=== PATIENT | male | born 1950 | race Caucasian/White ===

== ENCOUNTER 2022-03-24 16:35 | Observation (INO) ==
[2022-03-24] MEDS ORDERED: STAT IV Infusion **Titration per Protocol STA (16:58)
[2022-03-24] MEDS ORDERED: dilTIAZem HCl 5 MG/ML 5 ML VIAL IV STA (16:58)
[2022-03-24] MEDS ORDERED: dilTIAZem HCL 125 MG in DEXTROSE 5% 100 ML IV SCH (17:00)
[2022-03-24 17:47] LABS: Basophils # (auto) 0.02 K/uL (0-0.2); Basophils % (auto) 0.2 %; Eosinophils # (auto) 0.13 K/uL (0-0.5); Eosinophils % (auto) 1.4 %; Hematocrit (blood only) 49.5 % (42-52); Hemoglobin 17.5 g/dL (14.0-18.0); Immature Granulocytes # (auto) 0.03 K/uL (0.00-0.02); Immature Granulocytes % (auto) 0.3 %; Lymphocytes # (auto) 1.66 K/uL (1.2-3.4); Lymphocytes % (auto) 17.7 %; Mean Corpuscular Hemoglobin 32.1 pg (25-34); Mean Corpuscular Hgb Conc 35.4 g/dL (32-36); Mean Corpuscular Volume 90.7 fL (80-100); Mean Platelet Volume 9.3 fL (7.4-10.4); Monocytes # (auto) 0.94 K/uL (0.11-0.59); Neutrophils # (auto) 6.62 K/uL (1.4-6.5); Neutrophils % (auto) 70.4 %; Platelet Count 226 K/uL (130-400); RDW Coefficient of Variation 13.2 % (11.5-14.5); RDW Standard Deviation 43.3 fL (36.4-46.3); Red Blood Count 5.46 M/uL (4.7-6.1)
[2022-03-24 17:48] LABS: Troponin I High Sensitivity 8.3 pg/ml (0-20)
[2022-03-24 18:01] LABS: Albumin Globulin Ratio 1.5 (0.9-2); BUN Creatinine Ratio 31.8 (10-20); Bilirubin,Total 0.8 mg/dl (0.2-1.0); Creatinine Clr Calc Pharmacy 104.5 ml/min; Est GFR (African American) 101.6 ml/min; Est GFR (Non-African American) 87.6 ml/min; Globulin 2.6 gm/dl (2.5-4.0); Potassium 3.9 mmol/L (3.5-5.1); Total Protein 6.6 gm/dl (6.0-8.3)
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
[2022-03-24] MEDS ORDERED: METOPROLOL TARTRATE 1 MG/ML VIAL IV STA (19:07)
[2022-03-24] MEDS ORDERED: MAGNESIUM SULFATE / D5W 1 GM/100 ML BAG IV ONE (19:10)
--- NOTE | 2022-03-24 19:39 | History & Physical Report ---
Date of Service March 24, 2022 Assessment & Plan (1) Atrial flutter with rapid ventricular response: Plan: New onset afib/aflutter with rapid response - Transition off Diltiazem drip - Magnesium 1GM IV now - Metoprolol 5mg IV now- repeat if HR not respond- then PO Metoprolol 25mg PO q6-8 - CHADSVASC2- 1 currently with unknown EF, HGB A1C in am eval for DM - HASBLED - 0 - HScTNI negative - TSH normal - - Will start on Heparin infusion overnight - patient wants to think about agent options- if rhythm control strategy pursued will need anticoagulated - Cardiology consult - for rate vs. rhythm control discussion and follow up (2) HTN (hypertension): Plan: Hold Amlodopine - adjust therapy based on hemodynamic response with rate controlling agent - Metoprolol initiated (3) HLD (hyperlipidemia): Plan: Continue Pravastatin Lipid panel in am (4) Obesity (BMI 35.0-39.9 without comorbidity): Plan: Wieght loss would be beneficial for overall CV morbidity risk - Lipid panel and HGBA1c in morning for full risk profile (5) Elevated serum glucose: Plan: Random elevation not fasting without the diagnosis of DM - As above- evaluate HGBA1c History of Present Illness Primary Care Provider: NO PCP 71 YOM with medical history: Obesity, HTN, HLD. Patient comes to the [facility] today for evaluation for increased HR. He was noted to be in Afib/Aflutter. He was initiated on Diltiazem drip in the EMD. He had routine labs performed to include HScTNI, CK,Lyme. Medicine team was consulted for admission. Patient states that on Tuesday he was working on [employer] and had gotten electrocuted 2 times, they then went to [facility] on Tuesday and he checked his BP on one of the machines there and it said his pulse was 120-140 he initially thought this was wrong. He went home and checked his pulse on Tuesday with portable pulse ox that his uses for her pulmonary disorder- this again read 120/130. He has not had any symptoms of chest pain, or dizziness, but did endorse that he was more fatigued feeling yesterday. 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 He drinks 1-2 drinks per week and has never smoked. He denies any other medical history other than what is above. He has never had sleep study, but endorses that he snores quite loud at night. Family history of father with Afib. Patient also endorses that he does check his pulsox with his whenever she does it so onset of the fast HR is likely sometime within the past week. We have no records available for review. COVID test on admission is: NEGATIVE Allergies Allergy/AdvReac Type Severity Reaction Status Date / Time No Known Allergies Allergy Verified 03/24/22 17:05 Home Medications Medication Instructions Recorded Confirmed Type pravastatin 20 mg tablet 20 mg PO HS 03/24/22 03/24/22 History apixaban 5 mg tablet 5 mg PO BID #60 tab 03/25/22 Rx metoprolol succinate 25 mg 25 mg PO HS #30 tab 03/25/22 Rx tablet,extended release 24 hr Past Med/Surg History Medical History HLD (hyperlipidemia) HTN (hypertension) Family History Other Coronary heart disease Dyslipidemia Heart disease Hypertension Social History Smoking Status: Never smoker Second Hand Exposure: No; Hx Alcohol Use: Yes Alcohol type: wine Hx Substance Use: No Preferred Language: French Communication Ability: Effective Systems Mgr Required: No Beliefs That Will Affect Care: None Current Living Situation: Spouse Current Living Situation Comment: at home Feels Safe at Home: Yes Assistive Devices: None Review of Systems Review of Systems: REVIEW OF SYSTEMS: Constitutional: No fever, sweats or chills Eyes: No diplopia, no worsening or blurred vision ENT: (+) wears hearing aids, no trouble swallowing Respiratory: No cough, sputum, dyspnea at rest or on exertion Cardiovascular: No chest pain, tightness or palpitations Abdomen: No pain, nausea, vomiting, diarrhea or constipation Musculoskeletal: No joint pain, calf pain, swelling Neurologic: No weakness, numbness/tingling, or balance problems Psychiatric: No anxiety or depression Skin: No rash or itch Physical Exam Physical Exam: PHYSICAL EXAM: General: awake, alert, no apparent distress Head: Normocephalic, atraumatic ENT: PERRL, EOMI, no pharyngeal exudate, mucous membranes moist Neuro: AAO x 3, speech clear and appropriate, strength intact bilaterally 5/5, sensation intact and equal all extremities and dermatomes, no pronator drift Chest: equal rise and fall of the chest, no accessory muscle use, no heaves or thrills, Clear to auscultation, on room air, Cardiac: Regular rate and rhythm, telemetry reviewed, skin warm dry, cap refill <3 seconds, peripheral pulses +2 no JVD, no murmur, no JVD, no edema GI: NABS x 4 quadrants, soft, nontender to palpation, no rebound, guarding or tenderness : Spontaneously voiding, no pain, no CVA tenderness, Extremities: Normal inspection, no peripheral edema or erythema, calfs nontender to palpation Psych: Normal mood and affect Skin: no rash or erythema Results & Data Results & Data ([facility]) Vital Signs (Past 12 Hours) Vital Signs Temp Pulse Resp BP Pulse Ox 03/24/22 17:17 123/94 03/24/22 17:00 134 H 20 118/98 96 03/24/22 16:37 36.6 C 135 H 18 120/92 95 Laboratory Results Abnormal lab results 03/24/22 03/24/22 Range/Units 17:10 17:32 Neut # (Auto) 6.62 H (1.4-6.5) K/uL [place] # (Auto) 0.94 H (0.11-0.59) K/uL Immature Gran # (Auto) 0.03 H (0.00-0.02) K/uL Chloride 109 H (98-107) mmol/L Carbon Dioxide 19 L (21-32) mmol/L Anion Gap 12 H (3-11) BUN 28 H (6-23) mg/dl BUN/Creatinine Ratio 31.8 H (10-20) Glucose 101 H (70-99(Fasting)) mg/dl Diagnostic Findings CXR on admit evaluate heart size and pulmonary farrar Medications Administered Home Medications amlodipine 5 mg tablet 5 mg PO HS 03/24/22 [History Confirmed 03/24/22] pravastatin 20 mg tablet 20 mg PO HS 03/24/22 [History Confirmed 03/24/22] Active Medications Heparin Sodium/Dextrose (Heparin Iv Adult Wt-Based Low-Dose *No* Bolus Protocol) 1 ea IV Q1H [facility]; Protocol Stop: 04/23/22 19:11 Diltiazem HCl 125 mg/ Dextrose 125 mls @ 5 mls/hr IV .Q24H [facility]; Protocol Stop: 04/23/22 16:59 Last Admin: 03/24/22 17:24 Dose: 5 mg/hr, 5 mls/hr Documented by: Magnesium Sulfate/Dextrose (Magnesium Sulfate / D5w) 1 gm in 100 mls @ 50 mls/hr IV ONE ONE Stop: 03/24/22 21:09 Heparin Sodium/Dextrose (Heparin Sodium/Dextrose) 25,000 units in 500 mls @ 0.02 mls/hr IV .Q24H [facility]; Protocol Stop: 04/23/22 19:29 Diltiazem HCl 125 mg/ Dextrose 125 mls @ 5 mls/hr IV .Q24H [facility]; Protocol Stop: 04/23/22 16:59 Last Admin: 03/24/22 17:24 Dose: 5 mg/hr, 5 mls/hr Documented by: [id number] Cosigned by: [id number] Discontinued Medications Diltiazem HCl (Diltiazem Hcl 5 Mg/Ml 5 Ml Vial) 10 mg IV NOW STA Stop: 03/24/22 16:59 Last Admin: 03/24/22 17:17 Dose: 10 mg Documented by: [id number] Cosigned by: [id number] ECG Additional Comments: Sinus tachycardia with short MI Right bundle branch block Left anterior f ascicular block Bifascicular block T wave abnormality, consider inferolateral ischemia Abnormal ECG No previous ECGs available Code Status & VTE Plan Code Status CODE: FULL VTE: SCDs, Heparin drip VTE Prophylaxis Plan VTE Prophylaxis will be ordered: Yes Critical Care Time 40 minutes critical care time spent direct care and discussion with patient - transitioning IV drip medication - discussing therapeutic options and risks - reviewing records and interpreting EKG and Radiological film Supervising Physician Co-Signing Physician Notes I personally examined the patient and verified all zavala points of history and exam, discussed case, and agree with decision making with Trini CEDILLO feeling OK now vitals noted nad heent nc at mmm breathing unlabored no accessory muscles good effort skin no rashes no pallor or icterus tachycardia - afib/flutter - RVR. rate control, anticoagulate. otherwise as above PG Care Time/CCT Total # of Minutes Spent Total Time Spent with Patient: Total time spent is greater than 50% in coordination of care (as documented) at patient's floor/unit and/or counseling patient: Coding Level of Care Code INT OBSERVATION CARE 72M LVL 3 Diagnoses HTN (hypertension) I10 HLD (hyperlipidemia) E78.5 Obesity (BMI 35.0-39.9 without comorbidity) E66.9 Atrial flutter with rapid ventricular response I48.92 Elevated serum glucose R73.9
--- NOTE | 2022-03-24 19:40 | Communication Note ---
Date of Service: March 24, 2022 I personally examined the patient and verified all zavala points of history and exam, discussed case, and agree with decision making with Trini CEDILLO HR up. checked at store ~140, checked again at home - persistent. came to ER vitals noted nad heent nc at mmm cardio tachy ~100 at the time i see him no r/m/g lungs clear no focal neuro deficits afib/flutter - RVR - rate control improving. continue w beta angelina. discussed fpc anticoagulation otherwise as above
[2022-03-24 19:41] LABS: Lyme Ab IgG w/WB Rflx Negative (Negative); Lyme Ab IgM w/WB Rflx Negative (Negative)
[2022-03-24] MEDS ORDERED: ONDANSETRON INJ 2 MG/ML 2 ML VIAL IV PRN (19:56)
[2022-03-24] MEDS ORDERED: METOPROLOL TARTRATE 25 MG TAB PO STA (19:57)
[2022-03-24] MEDS ORDERED: METOPROLOL TARTRATE 1 MG/ML VIAL IV PRN (19:58)
[2022-03-24] MEDS ORDERED: HEPARIN SODIUM/DEXTROSE 25,000 UNITS/500 ML BAG IV SCH (20:15)
--- NOTE | 2022-03-24 20:16 | XRay Report ---
XR chest 1V portable HISTORY: Palpitations. COMPARISON: None. FINDINGS: There are low lung volumes. This likely accounts for the mild prominence of the cardiac chan houette. No focal lung consolidations to suggest pneumonia. No evidence for pulmonary edema. No pleur al effusions. No pneumothorax. IMPRESSION: No acute process. ACT 112: Negative or not required by law. Electronically signed by: Gary Trammell M.D. 03/24/2022 8:15 PM
[2022-03-24] MEDS: Heparin IV Adult Wt-Based Low-Dose *NO* Bolus Protocol IV SCH (21:00)
[2022-03-24] MEDS ORDERED: PRAVASTATIN SOD 20 MG TAB PO SCH (21:00)
[2022-03-25] MEDS: METOPROLOL TARTRATE 25 MG TAB PO SCH ×3 (04:33→13:22)
[2022-03-25] MEDS: Heparin IV Adult Wt-Based Low-Dose *NO* Bolus Protocol IV SCH (07:10)
[2022-03-25 07:55] LABS: BUN Creatinine Ratio 27.1 (10-20); Chol HDL Ratio 3.4 (0-5); Est GFR (Non-African American) 88.9 ml/min; Magnesium 2.1 mg/dl (1.7-2.4); Potassium 3.8 mmol/L (3.5-5.1)
[2022-03-25 07:59] LABS: Basophils # (auto) 0.04 K/uL (0-0.2); Basophils % (auto) 0.6 %; Eosinophils # (auto) 0.19 K/uL (0-0.5); Eosinophils % (auto) 2.8 %; Hematocrit (blood only) 47.2 % (42-52); Hemoglobin 16.6 g/dL (14.0-18.0); Immature Granulocytes # (auto) 0.03 K/uL (0.00-0.02); Immature Granulocytes % (auto) 0.4 %; Lymphocytes # (auto) 1.89 K/uL (1.2-3.4); Lymphocytes % (auto) 27.5 %; Mean Corpuscular Hemoglobin 32.8 pg (25-34); Mean Corpuscular Hgb Conc 35.2 g/dL (32-36); Mean Corpuscular Volume 93.3 fL (80-100); Mean Platelet Volume 9.5 fL (7.4-10.4); Monocytes # (auto) 0.79 K/uL (0.11-0.59); Monocytes % (auto) 11.5 %; Neutrophils # (auto) 3.93 K/uL (1.4-6.5); Neutrophils % (auto) 57.2 %; Platelet Count 230 K/uL (130-400); RDW Coefficient of Variation 13.1 % (11.5-14.5); RDW Standard Deviation 44.9 fL (36.4-46.3); Red Blood Count 5.06 M/uL (4.7-6.1); White Blood Count 6.87 K/uL (4.8-10.8)
--- NOTE | 2022-03-25 09:24 | Cardiology Consultation ---
Date of Consultation March 25, 2022 History of Present Illness Reason for Consultation: Atrial flutter Requesting Physician: NGUYEN Ruelas History of Present Illness Mr. Hall is a 71-year-old male with a past medical history significant for hypertension and dyslipidemia who was admitted yesterday with new onset atrial flutter. Family history: Social history: Allergies Allergy/AdvReac Type Severity Reaction Status Date / Time No Known Allergies Allergy Verified 03/24/22 17:05 Home Medications Medication Instructions Recorded Confirmed Type amlodipine 5 mg tablet 5 mg PO HS 03/24/22 03/24/22 History pravastatin 20 mg tablet 20 mg PO HS 03/24/22 03/24/22 History Patient History Medical History (Updated 03/24/22 @ 19:44 by NGUYEN Baeza) HLD (hyperlipidemia) HTN (hypertension) Family History (Updated 03/24/22 @ 19:31 by NGUYEN Baeza) Other Coronary heart disease Dyslipidemia Heart disease Hypertension Social History Smoking Status: Never smoker Second Hand Exposure: No; Do You Dip or Chew Tobacco: No; Hx Alcohol Use: Yes Alcohol type: wine Hx Substance Use: No Preferred Language: Arabic Communication Ability: Effective [employer] Service Technician Required: No Beliefs That Will Affect Care: None Current Living Situation: Spouse Current Living Situation Comment: at home Other Information That Helps Us Care for You: No Feels Safe at Home: Yes Safety Concerns: Feels Safe At This Time Assistive Devices: Glasses and Hearing Aid - Bilateral Results & Data ([facility]) Vital Signs (Past 12 Hours) Vital Signs Temp Pulse Pulse Resp BP Pulse Ox 03/25/22 07:49 98.6 F 58 L 18 118/75 94 03/25/22 07:10 55 L 03/25/22 04:10 97.7 F 53 L 18 121/67 93 03/24/22 23:27 98.4 F 55 L 18 129/83 96 03/24/22 23:17 64 03/24/22 22:48 60 03/24/22 21:55 98.2 F 54 L 18 116/79 95 Laboratory Results Laboratory Results WBC 6.87 K/uL (4.8-10.8) 03/25/22 07:20 RBC 5.06 M/uL (4.7-6.1) 03/25/22 07:20 Hgb 16.6 g/dL (14.0-18.0) 03/25/22 07:20 Hct 47.2 % (42-52) 03/25/22 07:20 MCV 93.3 fL (80-100) 03/25/22 07:20 MCH 32.8 pg (25-34) 03/25/22 07:20 MCHC 35.2 g/dL (32-36) 03/25/22 07:20 RDW Std Deviation 44.9 fL (36.4-46.3) 03/25/22 07:20 RDW Coeff of Audrey 13.1 % (11.5-14.5) 03/25/22 07:20 Plt Count 230 K/uL (130-400) 03/25/22 07:20 MPV 9.5 fL (7.4-10.4) 03/25/22 07:20 Immature Gran % (Auto) 0.4 % 03/25/22 07:20 Neut % (Auto) 57.2 % 03/25/22 07:20 Lymph % (Auto) 27.5 % 03/25/22 07:20 [place] % (Auto) 11.5 % 03/25/22 07:20 Eos % (Auto) 2.8 % 03/25/22 07:20 Baso % (Auto) 0.6 % 03/25/22 07:20 Neut # (Auto) 3.93 K/uL (1.4-6.5) 03/25/22 07:20 Lymph # (Auto) 1.89 K/uL (1.2-3.4) 03/25/22 07:20 [place] # (Auto) 0.79 K/uL (0.11-0.59) H 03/25/22 07:20 Eos # (Auto) 0.19 K/uL (0-0.5) 03/25/22 07:20 Baso # (Auto) 0.04 K/uL (0-0.2) 03/25/22 07:20 Immature Gran # (Auto) 0.03 K/uL (0.00-0.02) H 03/25/22 07:20 PT 11.0 Seconds (9.0-12.0) 03/24/22 19:11 INR 1.0 (0.9-1.1) 03/24/22 19:11 Sodium 139 mmol/L (136-145) 03/25/22 07:20 Potassium 3.8 mmol/L (3.5-5.1) 03/25/22 07:20 Chloride 106 mmol/L (98-107) 03/25/22 07:20 Carbon Dioxide 27 mmol/L (21-32) 03/25/22 07:20 Anion Gap 6 (3-11) 03/25/22 07:20 BUN 23 mg/dl (6-23) 03/25/22 07:20 Creatinine 0.85 mg/dl (0.6-1.4) 03/25/22 07:20 Est Cr Clr Drug Dosing 105.0 ml/min 03/25/22 07:20 Est GFR ( Amer) 103.0 ml/min 03/25/22 07:20 Est GFR (Non-Af Amer) 88.9 ml/min 03/25/22 07:20 BUN/Creatinine Ratio 27.1 (10-20) H 03/25/22 07:20 Glucose 100 mg/dl (70-99(Fasting)) H 03/25/22 07:20 Calcium 9.0 mg/dl (8.5-10.1) 03/25/22 07:20 Magnesium 2.1 mg/dl (1.7-2.4) 03/25/22 07:20 Total Bilirubin 0.8 mg/dl (0.2-1.0) 03/24/22 17:10 AST 16 U/L (13-39) 03/24/22 17:10 ALT 12 U/L (7-52) 03/24/22 17:10 Alkaline Phosphatase 61 U/L (34-104) 03/24/22 17:10 Total Creatine Kinase 114 U/L (30-223) 03/24/22 17:10 Troponin I High Sens 8.3 pg/ml (0-20) 03/24/22 17:10 Total Protein 6.6 gm/dl (6.0-8.3) 03/24/22 17:10 Albumin 4.0 gm/dl (3.4-5.0) 03/24/22 17:10 Globulin 2.6 gm/dl (2.5-4.0) 03/24/22 17:10 Albumin/Globulin Ratio 1.5 (0.9-2) 03/24/22 17:10 Triglycerides 132 mg/dl (0-150) 03/25/22 07:20 Cholesterol 161 mg/dl (0-200) 03/25/22 07:20 LDL Cholesterol, Calc 87 mg/dl 03/25/22 07:20 VLDL Cholesterol, Calc 26 mg/dl (0-30) 03/25/22 07:20 HDL Cholesterol 48 mg/dl 03/25/22 07:20 Cholesterol/HDL Ratio 3.4 (0-5) 03/25/22 07:20 TSH 2.271 uIu/ml (0.300-4.500) 03/24/22 17:10 Lyme Disease IgG Ab Negative (Negative) 03/24/22 17:10 Lyme Disease IgM Ab Negative (Negative) 03/24/22 17:10 SARS-CoV-2, RNA, NAAT NEGATIVE (NEGATIVE) 03/24/22 17:23 Diagnostic Findings Chest X-Ray 03/24/22: No acute process. Telemetry monitoring: Atrial flutter converted to sinus rhythm at 20:30 on 03/24/22. He has since been in sinus in the 50s-60s. ECG 03/24/22 16:48: Atrial flutter at 135 bpm. Left anterior fascicular block. ECG 03/24/22 20:43: Sinus bradycardia with first degree AV block at 53 bpm. Left anterior fascicular block. Echo preliminary reading: Normal LV systolic function. Mild LVH. Mild left atrial enlargement. Mild MR. PG Care Time/CCT Total # of Minutes Spent Total Time Spent with Patient: Total time spent is greater than 50% in coordination of care (as documented) at patient's floor/unit and/or counseling patient: Coding
--- NOTE | 2022-03-25 10:26 | XCELERA ---
[id number]
--- NOTE | 2022-03-25 10:31 | Cardiology Consultation ---
Date of Consultation March 25, 2022 Assessment & Plan (1) Atrial flutter with rapid ventricular response: (2) HTN (hypertension): (3) HLD (hyperlipidemia): (4) Obesity (BMI 35.0-39.9 without comorbidity): 71-year-old man with vascular risk factors (age/hypertension/dyslipidemia) but no known coronary disease who was admitted with atrial flutter with rapid ventricular response after receiving electrical shock at home. Although this may be a one-time event, he does have predisposing risk factors for recurrent atrial fibrillation of family history, hypertension, age, mild LVH, and mild MR with mildly dilated left atrium. Since he runs bradycardic at home, would use only low-dose beta-angelina. His blood pressure has been low normal here, therefore discontinue amlodipine and initiate metoprolol succinate 25 mg daily. He will monitor blood pressure, could add amlodipine back or initiate low-dose diuretic if he becomes hypertensive. Would use short-term anticoagulation with apixaban 5 mg twice daily, discussed with the patient self monitoring (checking pulse or using watch with [employer] mariana), will reevaluate need for anticoagulation at the time of an office visit in 3 to 4 weeks and decide on chronic anticoagulation versus surveillance with anticoagulation as needed. Avoid aspirin and minimize nonsteroidal use while on apixaban. Did encourage regular exercise to improve exercise tolerance as well as facilitate weight loss. Continue statin given his vascular risk factors. Agree with evaluation for diabetes. Cardiology follow-up in 3 to 4 weeks in the office. History of Present Illness Reason for Consultation: afib Requesting Physician: Sukhjinder Victor MD Attending Physician: Sukhjinder Victor MD History of Present Illness 71-year-old man with history of hypertension dyslipidemia, no known cardiac history, who was admitted 03/24/2022 after noticing his heart rate was elevated, ECG showed atrial flutter with rapid ventricular response (135 bpm). 4 days ago he was repairing a leaking water pipe at home when he received 2 separate electric shocks, he did not feel badly afterwards but several days later when checking blood pressure found that his pulse rate was 120-140 bpm which was confirmed on a pulse ox. He denied chest pain at any time and noted no subjective palpitations, dyspnea, lightheadedness and had no presyncope or syncope. Family history of father with atrial fibrillation. He drinks 1-2 alcoholic beverages weekly and is a non-smoker. Modestly physically active but no formal exercise. Notes that his baseline heart rate is borderline bradycardic and has been so since he was young adult, usually in the 50 bpm ran ge. Last evening he spontaneously converted back to sinus rhythm and has been in the 60 bpm range. He was comfortable this morning and had no somatic complaints whatsoever. Allergies Allergy/AdvReac Type Severity Reaction Status Date / Time No Known Allergies Allergy Verified 03/24/22 17:05 Home Medications Medication Instructions Recorded Confirmed Type amlodipine 5 mg tablet 5 mg PO HS 03/24/22 03/24/22 History pravastatin 20 mg tablet 20 mg PO HS 03/24/22 03/24/22 History Patient History Medical History HLD (hyperlipidemia) HTN (hypertension) Family History Other Coronary heart disease Dyslipidemia Heart disease Hypertension Social History Smoking Status: Never smoker Second Hand Exposure: No; Do You Dip or Chew Tobacco: No; Hx Alcohol Use: Yes Alcohol type: wine Hx Substance Use: No Preferred Language: Citizen Of [place] Communication Ability: Effective Telephone Lines Repairer Required: No Beliefs That Will Affect Care: None Current Living Situation: Spouse Current Living Situation Comment: at home Other Information That Helps Us Care for You: No Feels Safe at Home: Yes Safety Concerns: Feels Safe At This Time Assistive Devices: Glasses and Hearing Aid - Bilateral Physical Exam Physical Exam: Mildly obese adult white male in no distress. BP normotensive. Pulse 58 bpm and regular without ectopy. Skin: no ecchymoses or generalized lesions. HEENT: unremarkable. Neck: no JVD or carotid bruits. Lungs: clear. Cardiac: regular rhythm, normal S1 and S2, no murmur or gallop. Abdomen: benign. Extremities: no edema, pulses intact. Neurologic: normal affect, nonfocal. Results & Data ([facility]) Vital Signs (Past 12 Hours) Vital Signs Temp Pulse Pulse Resp BP Pulse Ox 03/25/22 07:49 98.6 F 58 L 18 118/75 94 03/25/22 07:10 55 L 03/25/22 04:10 97.7 F 53 L 18 121/67 93 03/24/22 23:27 98.4 F 55 L 18 129/83 96 03/24/22 23:17 64 03/24/22 22:48 60 Laboratory Results Normal troponin (8.3). Normal CBC. Normal electrolytes, BUN 23, creatinine 0.85. Magnesium 2.0. Cholesterol 161, HDL 48, LDL 87, triglycerides 132. Lyme titer negative. COVID testing negative. Diagnostic Findings Initial ECG showed atrial flutter with with ventricular rate 135 bpm, left anterior fascicular block, no prior study for comparison. ECG today showed sinus bradycardia 55 bpm with left anterior fascicular block, otherwise unremarkable. Echocardiogram showed EF 55 to 60% with mild LVH, mild mitral regurgitation mildly dilated left atrium, normal right ventricular systolic pressure, mildly dilated inferior vena cava. No prior study for comparison. Chest x-ray showed no acute process. PG Care Time/CCT Total # of Minutes Spent Total Time Spent with Patient: Total time spent is greater than 50% in coordination of care (as documented) at patient's floor/unit and/or counseling patient: Coding Level of Care Code 94961 Inpt Consult Level 4 Diagnoses Atrial flutter with rapid ventricular response I48.92 HTN (hypertension) I10 HLD (hyperlipidemia) E78.5 Obesity (BMI 35.0-39.9 without comorbidity) E66.9
--- NOTE | 2022-03-25 11:41 | Discharge Summary ---
Date of Service March 25, 2022 Admission HPI Per Admitting Provider 71 YOM with medical history: Obesity, HTN, HLD. Patient comes to the EMD today for evaluation for increased HR. He was noted to be in Afib/Aflutter. He was initiated on Diltiazem drip in the EMD. He had routine labs performed to include HScTNI, CK,Lyme. Medicine team was consulted for admission. Patient states that on Tuesday he was working on [employer] pipe and had gotten electrocuted 2 times, they then went to [facility] on Tuesday and he checked his BP on one of the machines there and it said his pulse was 120-140 he initially thought this was wrong. He went home and checked his pulse on Tuesday with portable pulse ox that his uses for her pulmonary disorder- this again read 120/130. He has not had any symptoms of chest pain, or dizziness, but did endorse that he was more fatigued feeling yesterday. He is active around the house with DIY projects and carpentry. He drinks 1-2 drinks per week and has never smoked. He denies any other medical history other than what is above. He has never had sleep study, but endorses that he snores quite loud at night. Family history of father with Afib. Patient also endorses that he does check his pulsox with his whenever she does it so onset of the fast HR is likely sometime within the past week. We have no records available for review. COVID test on admission is: NEGATIVE Principal Diagnosis Episode of atrial fibrillation Discharge Exam Constitutional WD/WN, vitals as above Eyes EOM intact bilaterally; no conjunctival abnormality ENMT external ear and nose normal, oropharynx normal Neck trachea midline, no thyromegaly normal visual inspection Respiratory normal respiratory effort, lungs clear to auscultation no respiratory distress Cardiovascular RRR, no murmur, no edema Gastrointestinal (Abdomen) Inspection/Auscultation: abdomen normal to inspection; abdomen not distended Musculoskeletal no cyanosis or clubbing, extremities motor strength 5/5 Skin no rashes, warm and dry Neurologic moves all extremities and awake Psychiatric Orientation: alert, oriented to person and cooperative Discharge Data Allergies Allergy/AdvReac Type Severity Reaction Status Date / Time No Known Allergies Allergy Verified 03/24/22 17:05 Consultations 03/24/22 19:56 Consult Cardiology Routine Hospital Course (1) Atrial flutter with rapid ventricular response: New onset afib/aflutter with rapid response. CHADs-VASC of 2. - Converted on 03/24 at 8:30pm. No further afib. - Echo showed EF 55-60%, mild MR. Seen by cardiology; plan for discharge on beta-angelina and anticoagulation. At baseline, has low HR, so may or may not tolerate while in sinus. Will buy an Apple Watch to monitor for more episodes of afib. If he does not have any further episodes in the near future, will discuss with cardiology re: stopping anticoagulation. (2) HTN (hypertension): BP was 125-77 in the hospital. - Continue home amlodipine on discharge. BB as above. (3) HLD (hyperlipidemia): Continue Pravastatin (4) Obesity (BMI 35.0-39.9 without comorbidity): Weight loss would be beneficial for overall CV morbidity risk (5) Elevated serum glucose: Random elevation not fasting without the diagnosis of DM - As above- evaluate HGBA1c -> Still pending on discharge. PCP f/u. Total Time Total Time Spent Total Time Spent (In Minutes): 35 Discharge Plan Discharge Items Patient Disposition: Home - Self-Care Reason For Visit: ABNORMAL HEART PALPITATIONS Discharge Diagnosis: Atrial fibrillation episode Activity: Resume your previous activity Non-emergency contact: Primary Care Provider and Management Scientist Call non-emergency contact if: your symptoms worsen Follow-up/Referrals: Duc Huitron MD [Physician] - PCP,NO [Primary Care Provider] - Diet: Regular Addtl Attending Provider Instructions: Mr. Hall, You were admitted to the hospital with an atrial fibrillation episode that caused your heart rate to go up. Luckily, you converted back into normal sinus rhythm largely on your own (with some slight medications from us). This was your first known episode of afib; however, it can recur. Since your dad had afib, it is likely that you have the propensity to go into it as well. For now, get the Apple watch that we discussed and monitor yourself. Dr. Huitron would like us to start a beta-angelina (called metoprolol) as well as an ticoagulation (called apixaban or Eliquis). The beta-angelina will help prevent your heart from running too fast in the event that you go into afib again. If it starts to cause your heart to run too slowly, please call Dr. Huitron's office to discuss. The blood thinner (anticoagulation) will help prevent strokes which can come from the left atrial appendage in the heart. If you have no further episodes of atrial fibrillation in the near future, please talk with Dr. Huitron about adjusting or even stopping these medications. That will be a future discussion while we monitor you closely. Pending Studies at Discharge: No Stand-Alone Forms: My [facility] [employer], Smoking Cessation Medications and DC Order Prescriptions: New metoprolol succinate 25 mg tablet extended release 24 hr 25 mg PO HS Qty: 30 RF: 0 apixaban 5 mg tablet 5 mg PO BID Qty: 60 RF: 0 Continued amlodipine 5 mg Tablet 5 mg PO HS RF: 0 pravastatin 20 mg Tablet 20 mg PO HS RF: 0 Discharge Orders: Discharge Order (Routine); Ordered 03/25/22 Ordered By: Sukhjinder Victor Admission Data Admit Date/Time: 03/24/22 19:19 Attending Provider: Sukhjinder Victor Admit Provider: Kei Clinton Primary Care Provider: PCP,NO Other Providers: Epi Borrego Coding Level of Care Code D/C DAY MANAGEMENT >30 MINS Diagnoses Atrial flutter with rapid ventricular response I48.92 HTN (hypertension) I10 HLD (hyperlipidemia) E78.5 Obesity (BMI 35.0-39.9 without comorbidity) E66.9 Elevated serum glucose R73.9
[2022-03-25 12:19] LABS: Estimated Average Glucose 105 mg/dl; Hemoglobin A1C 5.3 % (4.5-5.6)
--- NOTE | 2022-03-25 14:30 | Electrocardiogram Report ---
Test Reason : Blood Pressure : / mmHG Vent. Rate : 135 BPM Atrial Rate : 135 BPM P-R Int : 088 ms QRS Dur : 190 ms QT Int : 388 ms P-R-T Axes : 000 -59 270 degrees QTc Int : 582 ms Atrial flutter with 2 to 1 block Right bundle branch block Left anterior fascicular block Abnormal ECG No previous ECGs available Confirmed by Duc Huitron ([id number]) on 03/25/2022 2:29:24 PM Referred By: REFERRED SELF Confirmed By:Duc Huitron
--- NOTE | 2022-03-25 14:31 | Electrocardiogram Report ---
Test Reason : Blood Pressure : / mmHG Vent. Rate : 055 BPM Atrial Rate : 055 BPM P-R Int : 218 ms QRS Dur : 076 ms QT Int : 450 ms P-R-T Axes : 039 -49 -15 degrees QTc Int : 430 ms Sinus bradycardia with 1st degree A-V block Left anterior fascicular block Diffuse Minor Nonspecific T wave abnormality Abnormal ECG When compared with ECG of 24-MAR-2022 20:43, No significant change was found Confirmed by Duc Huitron ([id number]) on 03/25/2022 2:30:25 PM Referred By: REFERRED SELF Confirmed By:Duc Huitron
--- NOTE | 2022-03-25 14:31 | Electrocardiogram Report ---
Test Reason : Blood Pressure : / mmHG Vent. Rate : 053 BPM Atrial Rate : 053 BPM P-R Int : 214 ms QRS Dur : 080 ms QT Int : 432 ms P-R-T Axes : 036 -50 001 degrees QTc Int : 405 ms Sinus bradycardia with 1st degree A-V block Left atrial enlargement Left anterior fascicular block Diffuse Minor Nonspecific T wave abnormality Abnormal ECG When compared with ECG of 24-MAR-2022 16:48, Atrial flutter no longer present HR has decreased BY 82 BPM Confirmed by Duc Huitron ([id number]) on 03/25/2022 2:31:18 PM Referred By: REFERRED SELF Confirmed By:Duc Huitron
== END 2022-03-25 13:42 | disposition home or self-care (01) ==
LOC: ED 16:35 → EDINP 19:19 → SUATTDRO 19:19 → INTOOBSV 19:19 → 2E 20:09